=== PATIENT | female | born 2000 | race African-American/Black ===

== ENCOUNTER 2024-10-05 14:52 | Emergency (ER) | payer MEDICAID ==
[~2024-10-05] VITALS: Ht 162.6 cm; Wt 84.0 kg
[2024-10-05 15:02] VITALS: O2SAT 99
[2024-10-05 15:12] VITALS: BP 136/83; PULSE 95; RESP 16; TEMP 36.7; O2SAT 98
== END 2024-10-05 16:30 | disposition left against medical advice (07) ==
LOC: ER 14:52
DX: R10.9 Unspecified abdominal pain (principal); Z53.21 Procedure and treatment not carried out due to patient leaving prior to being seen by health care provider